=== PATIENT | female | born 2000 | race Asian ===

== ENCOUNTER → 2021-01-05 | Outpatient (CLI) | payer BC, OTHER ==
[~2021-01-05] MED LIST: [UNRECOGNIZED DRUG - OTHER] PO
== END ==
LOC: LAB 13:27
PROVIDERS: ATTEND Orthopaedic Surgery Sports Medicine
DX: Z01.812 Encounter for preprocedural laboratory examination (principal); Z20.822 Contact with and (suspected) exposure to COVID-19

== ENCOUNTER 2021-01-09 12:50 | Day surgery (SDC) | payer BC, OTHER ==
[~2021-01-09] VITALS: Ht 162.6 cm; Wt 58.5 kg
[2021-01-09 14:48] VITALS: BP 102/69
[2021-01-09 17:01] VITALS: BP 102/69
--- NOTE | 2021-02-06 10:14 | O ---
[facility] [place] [address] OPERATIVE REPORT Name: DUNIA BECKER Room #: DEP [facility].#: [id number] Admission: 01/09/21 Attend Phys: Tim Luque MD Discharge: 01/09/21 Date of : 00 Report #: [id number] THIS REPORT FOR: cc: MALU - No family physician/PCP FAM - No family physician/PCP Tim Luque MD ~ DOC #: [id number] Tim Luque MD DATE OF SERVICE: 01/09/2021 PREOPERATIVE DIAGNOSIS: Left knee anterior cruciate ligament tear. POSTOPERATIVE DIAGNOSIS: Left knee anterior cruciate ligament tear. PROCEDURE PERFORMED: Left knee arthroscopically assisted ACL reconstruction with quad tendon autograft. COMPLICATIONS: None. DRAINS: None. SPECIMENS: None. ANESTHESIA: General with regional. SURGEON: Tim Luque M.D. RETAIL MERCHANDISING MANAGER: Dorothy Zavala NP. INDICATION FOR RETAIL MERCHANDISING MANAGER: Graft preparation, arthroscope management, assistance with the reconstruction. 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 She had imaging, which was consistent with the ACL tear. The menisci and cartilage appeared intact. She was indicated for surgical treatment after risks, benefits, alternatives and indications were discussed with her in detail. Risks include but are not limited to pain, bleeding, infection, injury to nerves or blood vessels, persistent pain despite surgical intervention, failure of any repairs, progression of preexisting chondral injury, stiffness, need for further surgery as well as complications related to anesthesia. Despite the risks, she wished to proceed. PROCEDURE IN DETAIL: After the left lower extremity was correctly identified in the preoperative holding area as the operative extremity, the patient underwent regional nerve block. She was then taken to the operating room. [address] [address] OPERATIVE REPORT Name: BECKERDUNIA [facility]: [id number] Admission: 01/09/21 Attend Phys: Tim Luque MD Discharge: 01/09/21 Date of : 00 Report #: [id number] anesthesia with LMA was induced without complication. She was padded appropriately. Prophylactic antibiotics were administered at appropriate time. Tourniquet was applied to the left leg. Left lower extremity was then prepped and draped in standard sterile fashion. Timeout procedure was performed. Esmarch was used, tourniquet inflated to 250 mmHg. A 1-inch incision was made based off the superior pole of the patella and full-thickness skin flaps were developed. The quadriceps tendon autograft was then harvested off the superior pole of the patella. The Arthrex quad tendon card was used to allow for cortical fixation using the distal end of the graft on the femur and the proximal end of the graft on the tibia. The final graft size was approximately 9.5 mm in diameter x 65 mm in length. The graft was fashioned on the back table. Standard anterolateral viewing portal as well as anteromedial working portal were performed in a standard fashion after the harvest site was closed with a running locking #1 Vicryl suture. Diagnostic arthroscopy revealed the above findings. There was an effusion present. This was lavaged. There was no articular cartilage damage. There was some mild fraying around the lateral meniscus root, but otherwise there was no significant lateral or medial meniscus tear. The ACL stump was clearly present and was visualized and this was resected with a shaver. The Arthrex FlipCutter guide was then used to create a socket in the femur, 9.5 mm x approximately 23 mm in depth and then a FlipCutter was used to create a similar tunnel on the tibial side, creating a longer socket to ensure that the graft did not bottom out. The graft was then passed into the knee, advanced into the femur and then back passed into the tibia. We took the knee through a range of motion after advancing the graft into the femur and then balanced the position of the graft within both the femoral and tibial sockets and then again took the knee through a full range of motion to eliminate any graft creep and then re-tensioned the TightRope devices. Cullen was negative, pivot shift was negative. The graft was then re-tensioned finally one last time. Final photographs were taken. The arthroscopic effusion was drained. The harvest site was closed with 2-0 Vicryl and all incisions were closed with Monocryl. A sterile dressing was applied followed by compression stocking and a Polar Care device and the knee immobilizer was placed. The patient was awakened from anesthesia and taken to recovery room in stable condition. There were no complications and all counts were correct. Tim Luque MD [facility]/[address] [address] OPERATIVE REPORT Name: DUNIA BECKER Room #: DEP [facility] MR[facility]atR.#: [id number] Admission: 01/09/21 Attend Phys: Tim Luque MD Discharge: 01/09/21 Date of : 00 Report #: [id number] <ELECTRONICALLY SIGNED> By: Tim Luque MD 02/06/21 [id number] Tim Luque MD /nt
== END 2021-01-09 17:50 | disposition home or self-care (01) ==
LOC: OR 12:50 → TBA 12:50 → OR 14:24
PROVIDERS: ATTEND Orthopaedic Surgery Sports Medicine
DX: S83.512A Sprain of anterior cruciate ligament of left knee, initial encounter (principal); D64.9 Anemia, unspecified; Z98.890 Other specified postprocedural states; Z79.899 Other long term (current) drug therapy; X58.XXXA Exposure to other specified factors, initial encounter; Y93.89 Activity, other specified; Y92.89 Other specified places as the place of occurrence of the external cause; Y99.8 Other external cause status
CPT/HCPCS: 50010; 50101; 50386; 50405; 51320; 52001; 52282; 52313; 56524; 56527; 57103; 57179; 58297; 58352; 58484; 58485; 58486; 58589; 58680; 58682; 58730; 62110; 62900; 64043; 65060; 70005